=== PATIENT | female | born 1940 | race Caucasian/White ===

== ENCOUNTER → 2016-10-11 | Outpatient (CLI) | payer OTHER, BC ==
[~2016-10-11] MED LIST: ANASTROZOLE1 MG PO; ASPIR 8181 M1 PO; ASPIR 8181 MG PO; ATORVASTATIN CA40 MG PO; BISCOLAX10 MG RC; CENTRUM SILVER1 EAC4 PO; CINNAMON500 MG; COLACE100 MG PO; DETROL LA4 MG; FEVERALL650 MG RECTAL; FISH OIL 1,001000 M2 PO; FLAX OIL1000 MG; HYDROCHLOROTHIA25 M1 PO; LISINOPRIL5 MG PO; LOPRESSOR25 PO; MIRALAX17 GM PO; OMEPRAZOLE20 M2 PO; ROBITUSSIN100 MG/53 PO; VITAMIN D3400 UNIT
== END ==
LOC: MRI 09-26 14:38
DX: G45.9 Transient cerebral ischemic attack, unspecified (principal); I61.9 Nontraumatic intracerebral hemorrhage, unspecified; G31.9 Degenerative disease of nervous system, unspecified

== ENCOUNTER → 2017-05-02 | Outpatient (CLI) | payer OTHER, BC | LOC: NUC 08:49 | DX: C50.412 Malignant neoplasm of upper-outer quadrant of left female breast (principal); Z78.0 Asymptomatic menopausal state ==